=== PATIENT | male | born 1980 | race African-American/Black ===

== ENCOUNTER 2023-02-28 08:47 | Outpatient (CLI) | payer OTHER | END 2023-02-28 08:48 | disposition home or self-care (01) | LOC: CT 08:47 | PROVIDERS: ATTEND Internal Medicine | DX: J98.4 Other disorders of lung (principal); J84.10 Pulmonary fibrosis, unspecified; R91.8 Other nonspecific abnormal finding of lung field | CPT/HCPCS: 71250 ==